=== PATIENT | male | born 1990 | race Caucasian/White ===

== ENCOUNTER 2017-06-17 00:04 | Emergency (ER) | payer BC, MEDICAID ==
[~2017-06-17] VITALS: Ht 182.9 cm; Wt 70.8 kg
[2017-06-17 00:14] VITALS: BP 148/84
[2017-06-17] MEDS ORDERED: TDAP [DIPH/PERTUSSIS/TET] 0.5 ML VIAL IM ONE ×2 (00:53→01:00)
== END 2017-06-17 01:18 | disposition home or self-care (01) ==
LOC: ER 00:09
DX: S09.90XA Unspecified injury of head, initial encounter (principal); S61.412A Laceration without foreign body of left hand, initial encounter; S60.512A Abrasion of left hand, initial encounter; S39.92XA Unspecified injury of lower back, initial encounter; Z23 Encounter for immunization; Z88.0 Allergy status to penicillin; Z88.8 Allergy status to other drugs, medicaments and biological substances; W23.1XXA Caught, crushed, jammed, or pinched between stationary objects, initial encounter; Y93.89 Activity, other specified; Y92.89 Other specified places as the place of occurrence of the external cause; Y99.0 Civilian activity done for income or pay
CPT/HCPCS: 90471; 90715; 99283; A4606; Z7610

== ENCOUNTER 2017-06-18 06:00 | Emergency (ER) | payer BC ==
[~2017-06-18] VITALS: Ht 182.9 cm; Wt 70.8 kg
[2017-06-18] MEDS ORDERED: MAG HYDROX/AL HYDROX/SIMETH 30 ML UDC ONE (06:40)
[2017-06-18] MEDS ORDERED: LIDOCAINE VISCOUS 2% UD 15 ML UDC ONE (06:40)
--- NOTE | 2017-06-18 06:43 | NUR ---
PT CAME IN FOR UPPER ABDOMINAL PAIN WITH BURNING SENSATION, STARTED 11PM LAST NIGHT BUT HAS BEEN OCCURING ON/OFF FOR ONE MONTH WITH EPISODES OF VOMITING. A/O X4. VITALS WNL. O2 SAT 98% ON ROOM AIR.
[2017-06-18] MEDS ORDERED: MAG HYDROX/AL HYDROX/SIMETH 30 ML UDC PO ONE (07:00)
[2017-06-18] MEDS ORDERED: LIDOCAINE VISCOUS 2% UD 15 ML UDC MM ONE (07:00)
--- NOTE | 2017-06-18 07:22 | NUR ---
Patient discharged to home in stable condition. Written and verbal after care instructions given. Patient verbalizes understanding of instruction.
[2017-06-18 07:23] VITALS: BP 125/68
== END 2017-06-18 07:24 | disposition home or self-care (01) ==
LOC: ER 06:02
DX: R10.13 Epigastric pain (principal); Z88.0 Allergy status to penicillin; Z88.8 Allergy status to other drugs, medicaments and biological substances
CPT/HCPCS: 99283; A4606; Z7610